=== PATIENT | female | born 1945 | race Caucasian/White ===

== ENCOUNTER 2016-06-05 02:00 | Inpatient (IN) | payer OTHER, MEDICARE ==
[~2016-06-05] VITALS: Ht 167.6 cm; Wt 67.2 kg
[~2016-06-05 02:00] MED LIST: COMBIGAN EYE DRO5 ML; HYDROCHLOROTH12.5 M2 PO; LATANOPROST2.5 ML OPH; LISINOPRIL2.5 M1 PO; METOPROLOL SUCC50 M2 PO; PRESERVISION A1 EAC1 PO; SIMVASTATIN40 M1 PO; SYMBICORT 16010.2 GM INH
--- NOTE | 2016-06-05 15:26 | Admission Core Measures ---
Admission Meds I reviewed the following Meds: Current Medications Sig/Cristin Start time Last Medication Dose Stop Time Status Admin Atorvastatin Calcium 20 MG 1700 06/05 1699 UNVr (Lipitor) Brimonidine Tartrate 1 GTT BID 06/05 2199 UNVr (Alphagan) Budesonide/ 2 PUF BID 06/05 2199 UNVr Formoterol Fumarate (Symbicort) Hydrochlorothiazide 12.5 MG DAILY 06/06 1000 UNVr (Hydrodiuril) Latanoprost 1 GTT QPM 06/05 2199 UNVr (Xalatan) Lisinopril 2.5 MG DAILY 06/06 1000 UNVr (Prinivil) Metoprolol Succinate 50 MG DAILY 06/06 1000 UNVr (Toprol XL) Acute Coronary Syndrome Inclusion Criteria ACS Diagnosis No Inpatient Core Measures LDL Reminder: If No, please order W/I first 24hr of stay Congestive Heart Failure Inclusion Criteria CHF Diagnosis No Cerebrovascular accident Inclusion Criteria CVA/TIA Diagnosis No Inpatient Core Measures Bedside Swallow Eval Reminder: If BSE failed, place ST order Antithrombotic Reminder: Order Antithrombotic Medication by end of day 2 Antithrombotic Reminder: Document Reason Antithrombotic Not ordered by end of day 2 AFIB/Flutter Reminder: If Present, add to problem list AFIB/Flutter Reminder: Order Anticoag Medication for pts with AFIB/Flutter Atherosclerosis Reminder: If Present, add to problem list LDL Reminder: If No, please order W/I first 24hr of stay PT Order Reminder: If No, please order Venous thromboembolism Inpatient Core Measures VTE Risk Factors: Age > 40, Surgery No [facility] VTE prophylaxis d/t No contraindications No VTE Pharm Prophylaxis d/t No contraindications Inclusion Criteria - Per Current guidelines, there needs to be overlap - treatment for the first 5 days of Warfarin therapy. - Parenteral Anticoagulation (IV or SC) needs to be - given along with Warfarin therapy. VTE Diagnosis No VTE Type NONE VTE Confirmed by (Test) NONE Problem List As ranked by this Provider includes Assessment & Plan 1. Mass of upper lobe of left lung HOME MEDS Home Med List Budesonide/Formoterol Fumarate (Symbicort 160-4.5 Mcg Inhaler) 160 MCG-4.5 MCG/ ACTUATION HFA.AER.AD 2 PUF INH BID COPD (Reported) Hydrochlorothiazide 12.5 MG TABLET 1 TAB PO DAILY HTN (Reported) Latanoprost 0.005 % DROPS 1 GTT OPH QPM GLAUCOMA (Reported) Lisinopril 2.5 MG TABLET 1 TAB PO DAILY HTN (Reported) Metoprolol Succinate 50 MG TAB.ER.24H 1 TAB PO DAILY HTN (Reported) Simvastatin (Simvastatin*) 40 MG TABLET 1 TAB PO QPM CHOLESTEROL (Reported) Vit C/E/Zn/Coppr/Lutein/Zeaxan (Preservision Areds 2 Softgel) 250-200-40 CAPSULE 1 TAB PO DAILY EYES (Reported)
--- NOTE | 2016-06-05 15:37 | Cons- CRCU ---
See Addendum SUE PARIS,MATILDA 06/05/16 1537: General Information and HPI Consulting Request Date of Consult: 06/05/16 Requested By: Dr Elliott Source of Information: patient, family, old records Exam Limitations: no limitations History of Present Illness: Ms Valles is a 70 year old female with past medical history of hypertension, breast cancer status post radiation, COPD (onset 12/15/2015), and hyperlipidemia who was seen on the afternoon of 06/05/2016 in the PACU after undergoing a wedge resection of a left upper lobe lung mass. A PET scan showed hypermetabolism of left upper lobe lung nodule which was suspicious and given the size was suspicious for malignancy. At the time of the clinical encounter the patient was alert and oriented 3. She appeared comfortable and endorsed no pain. She seemed to be upset however further questioning revealed no information and she reassured us that she was fine. She is currently saturating well on 3 L of oxygen by nasal cannula. Patient's primary care physician is Dr. Calderon. Patient's pharmacy is [facility] in [place]. Allergies/Medications Allergies: Uncoded Allergies: BANDAIDS (Intermediate, RASH 05/28/16) Home Med List: Brimonidine Tartrate/Timolol (Combigan Eye Drops) 0.2 %-0.5 % DROPS GLAUCOMA ( Reported) LEFT EYE Budesonide/Formoterol Fumarate (Symbicort 160-4.5 Mcg Inhaler) 160 MCG-4.5 MCG/ ACTUATION HFA.AER.AD 2 PUF INH BID COPD (Reported) Hydrochlorothiazide 12.5 MG TABLET 1 TAB PO DAILY HTN (Reported) Latanoprost 0.005 % DROPS 1 GTT OPH QPM GLAUCOMA (Reported) BOTH EYES Lisinopril 2.5 MG TABLET 1 TAB PO DAILY HTN (Reported) Metoprolol Succinate 50 MG TAB.ER.24H 1 TAB PO DAILY HTN (Reported) Simvastatin (Simvastatin*) 40 MG TABLET 1 TAB PO QPM CHOLESTEROL (Reported) Vit C/E/Zn/Coppr/Lutein/Zeaxan (Preservision Areds 2 Softgel) 250-200-40 CAPSULE 1 TAB PO DAILY EYES (Reported) Current Medications: Current Medications Sig/Cristin Start time Last Medication Dose Route Stop Time Status Admin Atorvastatin Calcium 20 MG 1700 06/05 1700 AC PO Brimonidine Tartrate 1 GTT BID 06/05 2200 AC OPH Budesonide/ 2 PUF BID 06/05 2200 AC Formoterol Fumarate INH Hydrochlorothiazide 12.5 MG DAILY 06/06 1000 AC PO Latanoprost 1 GTT QPM 06/05 2200 AC OPH Lisinopril 2.5 MG DAILY 06/06 1000 AC PO Lisinopril 2.5 MG ONCE ONE 06/05 1550 DC PO 06/05 1551 Metoprolol Succinate 50 MG DAILY 06/06 1000 AC PO Review of Systems Review of Systems Constitutional: Reports: see HPI. Denies: chills, diaphoresis, fever, malaise, weakness. EENTM: Denies: blurred vision, double vision, visual changes, eye pain, eye drainage. Cardiovascular: Denies: chest pain, edema, orthopena. Respiratory: Reports: short of breath. Denies: cough, hemoptysis, orthopnea, sputum production, stridor, wheezing. GI: Denies: see HPI, abdominal pain, bloating, constipation, diarrhea, distention, melena, nausea. Genitourinary: Denies: discharge, dysuria, frequency, hematuria, hesitation, nocturia. Musculoskeletal: Denies: see HPI, back pain, gout, joint pain, joint swelling, muscle stiffness. Skin: Denies: see HPI, cysts, change in skin color, change in hair/nails, dryness, erythema, jaundice, lesions. Past History Travel History Traveled to [place] past 21 day No Medical History Cardiovascular: hypertension, hyperlipidemia Respiratory: COPD Renal: NONE Musculoskeletal: NONE Psychiatric: NONE Endocrine: NONE Blood Disorders: NONE Cancer(s): breast cancer Surgical History Surgical History: Resection of left upper lobe Psychosocial History Where Do You Live? Home Who Do You Live With? spouse Services at Home: None Primary Language: Martiniquais Smoking Status: Former Smoker (Quit 24 years ago) ETOH Use: occasional use Illicit Drug Use: denies illicit drug use Functional Ability ADLs Independent: dressing, eating, toileting, bathing. Ambulation: independent IADLs Independent: shopping, housework, finances, food prep, telephone, transportation , medication admin. Employment History Employment: Retired Exam & Diagnostic Data Last 24 Hrs of Vital Signs/I&O BP: 183/86 Physical Exam General Appearance: well developed/nourished, no apparent distress, alert, awake , comfortable Head: atraumatic, normal appearance Eyes: Bilateral: normal appearance, PERRL, EOMI. Ears, Nose, Throat: normal pharynx, normal ENT inspection, hearing grossly normal Neck: normal inspection, supple, full range of motion Respiratory: chest non-tender, decreased breath sounds, rhonchi Cardiovascular: regular rate/rhythm Peripheral Pulses: 4+ dorsalis pedis (R), 4+ dorsalis pedis (L) Gastrointestinal: normal bowel sounds, soft, non-tender, no organomegaly Back: normal inspection Extremities: normal inspection, normal capillary refill, normal range of motion, no edema Neurologic/Psych: no motor/sensory deficits, awake, alert, oriented x 3 Cranial Nerves: normal hearing, normal speech, PERRL Skin: intact Last 48 Hrs of Labs/Talon: Na: 135 Diagnostic Data CXR Results SERVICE DATE: 06/05/16 EXAM TYPE: RAD - XRY-PORTABLE CHEST XRAY EXAMINATION: XR PORTABLE CHEST CLINICAL INFORMATION: Chest tube. Status post left upper wedge resection. COMPARISON: Chest 06/02/2016. TECHNIQUE: Portable AP 70 degrees upright view of the chest was obtained. FINDINGS: There is a chest tube in the left upper hemithorax. There is no pneumothorax. The heart is normal in size. The lungs are clear. The bony thorax is unremarkable. IMPRESSION: Left chest tube. No pneumothorax. DICTATED BY: YAZ FITZGERALD MD Assessment/Plan Impression/Plan: Ms Valles is a 70 year old female with past medical history of hypertension, breast cancer status post radiation, COPD (onset 12/15/2015), and hyperlipidemia post operative day 0 status post, thorascopic wedge resection of left upper lobe lung mass. Chest tubes 1. #Left Upper lobe lung mass wedge resection Post op day 0 Pain management with Dilaudid. Restrict fluids for the next 24 hours. 1000ml Incentive spirometer Monitor chest tube drainage. Jenkins. Strict in and out. Chest X Ray In am #Hypertension During the time of the clinical encounter her blood pressure was elevated at 180 /86. Resumed home medicatiom Lisinopril 2.5mg . Continue to monitor overnight can resume all other antihypertensives including hydrochlorothiazide. If still remains uncontrolled consider labetalol bolus prn. #History of glucose intolerance. Monitor fingersticks 3 times a day at bedtime. Maintain blood sugars between 150 - 200. Last HBA1C 5.3 NovoLog sliding scale when necessary. #Hyponatremia On examination patient was hyponatremic 135. Will repeat labs in a.m. #Depressed mood. May want to consider a psychiatry consult in a.m. pending clinical course overnight and over the next 24 hours. #History of Smoking Patient is a former smoker. Nicotine patch 7 mg PRN #DVT prophylaxis Heparin sodium 5000 units every 8 hours. #Code Full code Consult Acknowledgment - Thank you for your consult request. KENRICK MCDONNELL MD 06/05/16 1603: General Information and HPI Consulting Request Date of Consult: 06/05/16 Requested By: Dr. Elliott Assessment/Plan Other Findings/Comments: Kenrick Jacob M.D. have examined this patient, reviewed available EMR data, personally reviewed images, discussed with resident/PA/ELECTRICIAN TECHNICIAN, discussed management plan with housestaff and nursing staff, discussed managment plan all of healthcare providers, discussed management plan with patient and/or family, agreed with resident/PA/ELECTRICIAN TECHNICIAN. The past history and parts of the chart have been autopopulated. Impression 70 year old woman * thoracoscopic wege resection of EZEQUIEL mass - non-small cell lung cancer * COPD Plan - post thoracotomy care - IST - ins/outs - chest tube per CT sx - oob - trc/nebs - resume home meds - pain control DVT prophylaxis at all times Consult Acknowledgment - Thank you for your consult request.
--- NOTE | 2016-06-05 16:08 | RADIOLOGY REPORT ---
EXAMINATION: XR PORTABLE CHEST CLINICAL INFORMATION: Chest tube. Status post left upper wedge resection. COMPARISON: Chest 06/02/2016. TECHNIQUE: Portable AP 70 degrees upright view of the chest was obtained. FINDINGS: There is a chest tube in the left upper hemithorax. There is no pneumothorax. The heart is normal in size. The lungs are clear. The bony thorax is unremarkable. IMPRESSION: Left chest tube. No pneumothorax.
--- NOTE | 2016-06-05 16:25 | Admission Certification ---
Admission Certification Certification Statement - As attending physician, I certify that at the time of - admission, based on clinical presentation, severity of - symptoms, need for further diagnostic testing and - therapeutic interventions, and risk of adverse outcomes - without in-hospital treatment, in my clinical assessment, - this patient requires an acute hospital stay for a minimum - of two nights or longer. I have also considered psychsocial - factors such as support system, advanced age, financial - issues, cognitive issues, and failed out-patient treatments, - past re-admission history, safety of patient, and lack of - compliance as applicable. Specific rationale supporting this admission is: Gumaro. chest surgery with postoperative intensive care unit stay
--- NOTE | 2016-06-05 16:27 | Operative Report ---
Operative/Inv Procedure Report Surgery Date: 06/05/16 Name of Procedure: Navigational bronchoscopy with ink marking and fiducial placement Pre-Operative Diagnosis: Left upper lobe lung mass Post-Operative Diagnosis: Same Estimated Blood Loss: none Surgeon/Cement Truck Driver: Dr. Farr Anesthesia: general endotracheal tube Operative/Procedure Note Note: After placement of monitoring lines and induction of general anesthesia a survey bronchoscopy was done. The endobronchial anatomy was normal. The navigational system was then registered. The guider catheter was advanced to the anterior segment of the left upper lobe just adjacent to the documented lung nodule. 0.5 mL of methylene blue was injected. A fiducial marker was then placed just adjacent to the nodule and all this was confirmed by fluoroscopy. The guider catheter was withdrawn and the procedure then commenced as a thoracoscopy.
--- NOTE | 2016-06-05 16:29 | Operative Report ---
Operative/Inv Procedure Report Surgery Date: 06/05/16 Name of Procedure: Thoracoscopic wedge resection of left upper lobe lung mass Pre-Operative Diagnosis: Left upper lobe lung mass Post-Operative Diagnosis: Non-small cell carcinoma Estimated Blood Loss: scant Surgeon/Sorority Supervisor: ILYA PARIS,ABBEY Ascencio Anesthesia: general endotracheal tube Operative/Procedure Note Note: The endotracheal tube was converted to a double-lumen endotracheal tube and the position was confirmed with fiberoptic bronchoscopy. The patient was placed in the right lateral decubitus position and her left chest was prepped and draped in a sterile fashion. An access thoracostomy site was made in the midaxillary line and the thoracoscope was introduced. To further working ports were made. The lesion was isolated to the anterior apical pleural surface. Multiple firings of the Endo STACY stapler resected the lesion and it was removed with a bag. On table fluoroscopy of the specimen alone showed that it did contain the fiducial marker. Intraoperative frozen section disclose evidence of carcinoma with good surgical margins. Exploration was done and the aorticopulmonary window but there were no lymph nodes found. Long-acting Marcaine blocks were placed as rib blocks. The chest was drained with a 28 Bel[place]an chest tube placed through an anterior thoracostomy site. The lung was reinsufflated under direct vision and the access thoracostomy sites were closed with deep Vicryl suture followed by running Vicryl subarticular suture. The Wells brought to the recovery room awake and extubated in stable condition.
[2016-06-05 18:00] VITALS: BP 138/64
--- NOTE | 2016-06-05 18:47 | PN- Thoracic Surgery ---
Subjective Subjective: The patient was seen this afternoon postoperatively. She reports her pain is under adequate control has no other complaints at the current time aside from being hungry. She denies any shortness of breath, or true chest pain. Objective Vital Signs and I&Os Vital Signs Date Time Temp Pulse Resp B/P B/P Pulse O2 O2 Flow FiO2 Mean Ox Delivery Rate 06/05 1800 98 Nasal 2.0L Cannula 06/05 1800 96.8 78 16 138/64 98 Nasal 2.0L Cannula I's and O's: 1700 ML's in of lactated Ringer's/250 ML's out of urine via Jenkins catheter/left chest tube 20 ML's/ EBL less than 50 Postoperative chest x-ray showing no pneumothorax and a left chest tube in adequate position. Physical Exam: Gen.: Alert and in no obvious distress Skin: Warm and dry Chest: Equal expansion, left chest surgical dressing is blood-tinged but otherwise intact left chest tube in place to suction with a small air leak Cardiac: S1-S2 regular Pulmonary: Bilateral breath sounds are equal with fine expiratory wheezes and good exchange Extremities: Bilateral lower extremities are warm without calf tenderness or significant edema. Gross motor and sensory are intact. Assessment/Plan Assessment/Plan Assessment: 62-year-old female status post navigational bronchoscopy/left VATS with upper lobe wedge resection. Postoperatively patient is progressing as expected, her pain is under adequate control, and she is oxygenating adequately a minimum oxygen requirements. Plan: Keep chest tube to Pleur-evac and wall suction Total respiratory care per postthoracotomy protocol GI and DVT prophylaxis Continue current pain regiment Strict I's and O's Resume all medications Follow-up morning laboratory studies and chest x-ray Maintain IV fluids and keep IV fluids until the morning Advance diet as tolerated Core Measures/Miscellaneous Jenkins Catheter Date In: 06/05/16 Still Needed? Yes Venous Thromboembolism VTE Risk Factors: Age > 40, Cancer/chemo/oth therapy, Surgery VTE Contraindications: No Contraindications VTE Diagnosis: No VTE Type: NONE VTE Confirmed by (Test): NONE Beta Heidi Is Beta Heidi a Home Med? Yes If Yes, Was This Ordered Today? Yes Antibiotics Is Patient on Antibiotics? Yes If Yes: prophylaxis
--- NOTE | 2016-06-05 19:23 | NUR ---
REC'D THE PT FROM PACU AT 1745 VIA THE CRCU BED. PT IS A&OX3 AND EDGAR WELL. L CT IS TO LWS WITH MINIMAL BLOODY DRAINAGE NOTED WELL AN AIR LEAK. THE DRESSING TO THE L UPPER BACK HAS LG BLOODY DRAINAGE-AREA CIRCLED AND TY SERNAC AWARE. PT IS ON A 2LNC WITH AN O2 SAT OF 98-100%, NO RESP DISTRESS NOTED. R LUNG IS CLEAR BUT DIMINISHED AT THE BASE. THE EZEQUIEL BS ARE ABSENT AND THERE ARE RHONCHI TO THE LLL. PT IS IN A NSR WITHOUT ECTOPY PER THE INSTRUMENTAL MUSICIAN. R RADIAL A-LINE IN PLACE WITH A GOOD WAVEFORM, HOWEVER, OT READS 30-40 HIGHER THAN THE MANUAL OR AUTOCUFF BP. Irene BOOTHE PA-C MADE AWARE AND PER THE PA WE ARE TO GO BY MANUAL AND AUTOCUFF. IVF OF D5 1/2 NS INITIATED AT 1900 AT 75ML/HR. PT IS TAKING LIQUIDS WELL. DINNER PLACED AMD THE PT IS AWAITING ARRIVAL FROM THE KITCHEN. ABD IS SOFT WITH NORMOACTIVE BOWEL SOUNDS. GRANADOS IN PLACE DRAINING CLEAR YELLOW URINE. REPORT GIVEN TO ONCOMING NURSE.
--- NOTE | 2016-06-05 20:27 | NUR ---
PT A/OX3, FOLLOWS COMMANDS. RATES INCISIONAL PAIN 3 OUT OF 10 AT PRESENT-DESCRIBES SHARP-SEE EMAR FOR PAIN MED ADMINISTRATION. LT SIDE CHEST TUBE IN PLACE-DRAINING BLOODY DRAINAGE AT PRESENT, POSITIVE AIR LEAK, NO CREPITUS NOTED. BREATH SOUNDS CLEAR RT SIDE WITH DIMINISHED BREATH SOUNDS AT BASE, LT RHONCI THOUGHOUT. NO COUGH, SOB OR RESP DISTRESS NOTED AT PRESENT. SEE FLOW SHEET FOR VS, 02 SATS, I/O'S. MONITOR SHOWS NSR, NO ECTOPY NOTED AT PRESENT. RT RADIAL CITLALY IN PLACE. ABD SOFT, NONTENDER, NONDISTENDED, POSITIVE BOWEL SOUNDS. GRANADOS IN PLACE-DRAINING BORDERLINE AMT OF CLEAR YELLOW URINE. LT UPPER BACK DRESSING WITH BLOODY DRAINAGE, CT DSG C/D/I
--- NOTE | 2016-06-05 22:24 | NUR ---
DECREASED SBP TO 90'S DESPITE IVF AND GOOD PO LIQUID INTAKE, URINE OUTPUT 20ML/HR FOR PAST 2 HOURS-REPORTED TO TY MARTINEZ-STATED WILL GIVE 500ML BOLUS-SEE EMAR-WILL MONITOR
[2016-06-05 23:59] VITALS: BP 90/50
--- NOTE | 2016-06-06 00:21 | NUR ---
SBP-80'S, URINE OUTPUT REMAINS LOW AT 35ML FOR 2HRS-REPORTED TO TY MARTINEZ-INCREASED IVF TO 100ML/HR ORDERED-WILL MONITOR
--- NOTE | 2016-06-06 03:23 | PN- Thoracic Surgery ---
See Addendum Subjective Subjective: The patient was seen early this morning postoperatively day 1. She reports that her pain is under relatively adequate control with current time and has no other complaints aside from a sore throat. She denies any true chest pain, palpitations, or difficulty breathing. Overnight the patient has required a fluid bolus due to low blood pressure and urine outputs which is responding well. Objective Vital Signs and I&Os Vital Signs Date Time Temp Pulse Resp B/P B/P Pulse O2 O2 Flow FiO2 Mean Ox Delivery Rate 06/06 0142 96 Nasal 2.0L Cannula 06/06 0000 98 Nasal 2.0L Cannula 06/05 2359 97.4 78 23 90/50 98 Nasal 2.0L Cannula 06/06 1999 98 Nasal 2.0L Cannula 06/05 191 Nasal 2.0L Cannula 06/05 1800 98 Nasal 2.0L Cannula 06/05 1800 96.8 78 16 138/64 98 Nasal 2.0L Cannula Intake & Output 06/06 0800 06/06 0000 06/05 1600 06/05 0800 06/05 0000 06/04 1600 Intake Total 1389 Output Total 133 Balance 1256 Intake, IV 409 Intake, Oral 980 Number 0 Bowel Movements Output, Chest 28 Tube Drainage Output, Urine 105 Patient 148 lb Weight Weight Bed scale Measurement Method Physical Exam: Gen.: Alert and in no obvious distress Skin: Warm and dry Chest: Equal expansion, appropriate incisional tenderness, surgical incision with slightly bloody dressing otherwise intact. His chest tube 1 connected to Pleur-evac and wall suction with minimal drainage in the collection chamber. There is a small air leak. Cardiac: S1-S2 regular Pulmonary: Bilateral breath sounds are equal and slightly decreased at bases. Extremities: Bilateral lower extremities warm without calf tenderness or significant edema. Assessment/Plan Assessment/Plan Assessment: 62-year-old female status post navigational bronchoscopy/left VATS with upper lobe wedge resection postoperative day #1. The patient to slowly progressing, her pain is under adequate control, and she is actually eating adequately on minimal oxygen requirements. Plan: Follow-up morning laboratory studies and chest x-ray Keep chest tube to suction Continue IV fluids until urine output improves Strict I's and O's Renew Jenkins catheter Resume home medications holding hypertensive medications if the patient's blood pressure still borderline GI and DVT prophylaxis Total respiratory care per postthoracotomy protocol Continue current pain regiment Out of bed to chair today Follow-up pulmonary consultation recommendations Core Measures/Miscellaneous Jenkins Catheter Date In: 06/05/16 Venous Thromboembolism VTE Risk Factors: Age > 40, Cancer/chemo/oth therapy, Surgery VTE Contraindications: No Contraindications VTE Diagnosis: No VTE Type: NONE VTE Confirmed by (Test): NONE Beta Heidi Is Beta Heidi a Home Med? Yes If Yes, Was This Ordered Today? Yes Antibiotics Is Patient on Antibiotics? No
[2016-06-06 05:05] LABS: ABSOLUTE BASOPHIL COUNT 0 /CUMM (0.0-0.2); ABSOLUTE EOSINOPHIL COUNT 0 /CUMM (0.0-0.7); ABSOLUTE GRANULOCYTE CT 4.7 /CUMM (1.4-6.5); ABSOLUTE LYMPH COUNT 0.6 /CUMM (1.2-3.4); ABSOLUTE MONOCYTE COUNT 0.5 /CUMM (0.10-0.60); BASOPHIL % 0.1 % (0.0-2.0); EOSINOPHIL % 0.3 % (0-5); GRANULOCYTE % 81.4 % (42.2-75.2); MEAN CORPUSCULAR HGB 33.6 PG (27.0-31.0); MEAN CORPUSCULAR HGB CONC 34.1 G/DL (33.0-37.0); MEAN CORPUSCULAR VOLUME 98.4 FL (81.0-99.0); MEAN PLATELET VOLUME 8.3 FL (7.4-10.4); PLATELET COUNT 161 /CUMM (130-400); RBC DISTRIBUTION WIDTH 15.2 % (11.5-14.5); RED BLOOD CELL CT 3.45 /CUMM (4.20-5.40); WHITE BLOOD CELL COUNT 5.8 /CUMM (4.8-10.8)
[2016-06-06 05:54] LABS: HEMATOCRIT 33.9 % (37-47)
--- NOTE | 2016-06-06 06:50 | PN- Resident CRCU ---
Subjective HPI/CRCU Issues: Ms. Valles was seen and examined this morning. She is resting comfortably in bed. She endorses no issues overnight and was able to get some rest. She is currently on supplemental oxygen via nasal cannula and saturating well. She denies any fever, chills, nausea, vomiting. She denies any acute pain. She has been tolerating by mouth intake well. 24 Hour Events: Patient had decreased urinary output and needed to have IVF. Low BP: 90/50 Objective Vital Signs & I&O Last 8 Hrs of Vitals and I&O: T: 97.4 HR:66-81. NSR RR: 10-23 BP: 86/40-169/75 On 2 L NC Urine output: SII 105 ml SIII: 345 Exam General Appearance: well developed/nourished, no apparent distress, alert, awake Respiratory: normal breath sounds, chest non-tender, no respiratory distress Cardiovascular: regular rate/rhythm Gastrointestinal: normal bowel sounds, soft, non-tender Extremities: normal inspection, normal capillary refill Cranial Nerves: normal hearing, normal speech Skin: intact, normal color Skin Temp/Moisture Exam: Warm/Dry Current Medications: Current Medications Sig/Cristin Start time Last Medication Dose Route Stop Time Status Admin Acetaminophen 650 MG Q6P PRN 06/05 1745 AC PO Acetaminophen 1,000 MG Q6P PRN 06/05 1745 AC 06/05 N/A 1 UNIT IV 2014 Albuterol Sulfate 3 ML Q4 06/05 2200 AC 06/06 INH 0753 Albuterol Sulfate 3 ML EVERY 4 HRS/AWAKE 06/05 2000 DC INH Atorvastatin Calcium 20 MG 1700 06/06 1700 AC PO Atorvastatin Calcium 20 MG 17006/05 1700 DC PO Benzocaine/Menthol 1 MOHAMUD Q2P PRN 06/05 2345 AC 06/06 PO 0218 Brimonidine Tartrate 1 GTT BID 06/05 2200 DC OPH Brimonidine Tartrate 1 GTT BID 06/05 2200 AC 06/05 OPH 2122 Budesonide/ 2 PUF BID 06/05 2200 DC Formoterol Fumarate INH Budesonide/ 2 PUF BID 06/05 2200 AC 06/05 Formoterol Fumarate INH 2126 Cefazolin Sodium 1,000 MG Q8H 06/05 2030 DC 06/06 IV 06/06 0431 0509 Dextrose/Sodium 1,000 ML Q10H 06/06 0800 AC Chloride IV Dextrose/Sodium 1,000 ML Q13H 06/05 1845 DC 06/05 Chloride IV 1857 Docusate Sodium 100 MG BID 06/05 2200 AC 06/05 PO 2130 Fentanyl Citrate 500 MCG .STK-MED ONE 06/05 1141 DC IM 06/05 1142 Heparin Sodium 5,000 UNIT Q8 06/05 2200 AC 06/06 (Porcine) SC 0619 Hydralazine HCl 10 MG ONCE ONE 06/05 1700 CAN PO 06/05 1701 Hydrochlorothiazide 12.5 MG DAILY 06/06 1000 CAN PO Hydrochlorothiazide 12.5 MG DAILY 06/06 1000 CAN PO Hydrochlorothiazide 12.5 MG ONCE ONE 06/05 1715 DC PO 06/05 1716 Hydrochlorothiazide 12.5 MG ONCE ONE 06/05 1715 CAN PO 06/05 1716 Hydromorphone HCl 2 MG Q4P PRN 06/05 1745 AC 06/06 IV 0509 Hydromorphone HCl 4 MG Q4P PRN 06/05 1745 AC IV Labetalol HCl 100 MG .STK-MED ONE 06/05 1458 DC IV 06/05 1459 Latanoprost 1 GTT QPM 06/05 2200 DC OPH Latanoprost 1 GTT QPM 06/05 2200 AC 06/05 OPH 2123 Lisinopril 2.5 MG DAILY 06/06 1000 DC PO Lisinopril 2.5 MG DAILY 06/06 1000 AC PO Lisinopril 2.5 MG ONCE ONE 06/05 1550 DC 06/05 PO 06/05 1551 1556 Meperidine HCl 50 MG .STK-MED ONE 06/05 1547 DC IM 06/05 1548 Metoprolol Succinate 50 MG DAILY 06/06 1000 DC PO Metoprolol Succinate 50 MG DAILY 06/06 1000 AC PO Midazolam HCl 2 MG .STK-MED ONE 06/05 1141 DC IM 06/05 1142 Ondansetron HCl 4 MG Q6P PRN 06/05 1745 AC IV Sodium Chloride 500 ML BOLUS ONE 06/06 0115 DC 06/06 IV 06/06 0214 0140 Sodium Chloride 500 ML BOLUS ONE 06/05 2230 DC 06/05 IV 06/05 2329 2228 Timolol Maleate 1 GTT BID 06/05 2199 AC 06/05 OPH 2122 Zolpidem Tartrate 5 MG AT BEDTIME NEED.. 06/05 220 AC PO EKG Findings: PATIENT: DORI VALLES PRESENT AGE: 70 PATIENT ACCOUNT NO: [id number] : 47 LOCATION: [facility] ORDERING PHYSICIAN: MELQUIADES MARTINEZ SERVICE DATE: 06/06/16 EXAM TYPE: RAD - XRY-PORTABLE CHEST XRAY EXAMINATION: XR PORTABLE CHEST CLINICAL INFORMATION: Chest tube to suction, question pneumothorax. COMPARISON: 06/05/2016. TECHNIQUE: Portable AP semierect view of the chest was obtained. FINDINGS: Right-sided thoracostomy tube remains in place. There is no evidence of developing pneumothorax. The lungs remain relatively clear with the staple line identified in the left upper lung medially. IMPRESSION: Stable-appearing examination, left-sided thoracostomy tube, no pneumothorax. DICTATED BY: KHADIJAH COLINDRES MD Impression/Plan Impression/Problem List Impression: Ms Valles is a 70 year old female with past medical history of hypertension, breast cancer status post radiation, COPD (onset 12/15/2015), and hyperlipidemia post operative day 0 status post, thorascopic wedge resection of left upper lobe lung mass. Chest tubes 1. #Left Upper lobe lung mass wedge resection Post op day 1 Pain management with Dilaudid. Patient needed supplemental fluids overnight, owing to low urine output. We have changed her fluids to: Normal Saline 100 ml/hr Incentive spirometer Monitor chest tube drainage,likely can be pulled out this afternoon. Jenkins. Strict in and out. Chest tube currently on air seal. Repeat chest x-ray to assess whether chest tube can be pulled this a.m. #Hypertension Blood pressure this AM: 108/57 During the time of the clinical encounter her blood pressure was elevated at 180 /86. Home medications: Lisinopril 2.5mg, metoprolol 50 mg. Resume home medications once blood pressure is above 130/80. #History of glucose intolerance. Finger stick to be checked today. If elevated continue monitoring. Maintain blood sugars between 150 - 200. Last HBA1C 5.3 NovoLog sliding scale when necessary. #Hyponatremia On examination labs patient was hyponatremic 135, Sodium this AM: 123. Likely due to increased ADH due to recent surgery and symptoms of pain. Urine osmolality, Urine Lytes Will repeat BEP at 12.00, if still hyponatremic, we will consult Nephrology. #Depressed mood. Patient seems much better this am. May want to consider a psychiatry consult in a.m. pending clinical course overnight and over the next 24 hours. #History of Smoking Patient is a former smoker. Nicotine patch 7 mg PRN #DVT prophylaxis Heparin sodium 5000 units every 8 hours. #Code Full code Problem List: 1. Mass of upper lobe of left lung 2. Glaucoma Pain Ratin Tomorrow's Labs & Rationales: CBC ICU Bundle Plan DVT/Prophylaxis: pharmacological
--- NOTE | 2016-06-06 06:58 | NUR ---
PT AWAKE MOST OF NIGHT. REMAINS A/OX3. RATED INCISIONAL PAIN 2-4 FOR SHIFT-DESCIBES A DULL PAIN. BREATH SOUNDS ON RT SIDE, CLEAR, DIMINISHED ON LT SIDE. LT CHEST TUBE WITH INTERMITTENT AIR LEAK, DRAINING SM AMT OF BLOODY DRAINAGE. IMPROVED URINE OUTPUT AND BP WITH INCREASE OF IVF RATE AND 2ND NS 500ML BOLUS. DRESSING REMAIN WITH BLOODY DRAINAGE. NO OTHER CHANGE IN PT ASSESSMENT THOUGHOUT SHIFT
--- NOTE | 2016-06-06 07:50 | RADIOLOGY REPORT ---
EXAMINATION:\H\ \N\XR CHEST CLINICAL INFORMATION: Navigational bronchoscopy left upper lobe. COMPARISON: Chest x-ray dated 06/05/2016. TECHNIQUE: Fluoroscopic equipment was dedicated to the operating room for the performance of a navigational bronchoscopy. 8 spot films were obtained and are archived in PACS. FLUOROSCOPY TIME: 1 minute 55 seconds. FINDINGS: Spot films demonstrate placement of a bronchoscope with indwelling catheter into the left upper lobe bronchus. IMPRESSION: Administrative dictation for fluoroscopic equipment provided to the operating room for navigational bronchoscopy left upper lobe.
[2016-06-06 08:00] VITALS: BP 108/40
--- NOTE | 2016-06-06 08:16 | PN- CRCU ---
See Addendum Subjective HPI/Critical Care Issues: pt seen and examined pod #1 pain is controlled no cp, no dyspnea at rest overnight had a fluid bolus for transient hypotension currently without dizziness Objective Current Medications: Current Medications Sig/Cristin Start time Last Medication Dose Route Stop Time Status Admin Acetaminophen 650 MG Q6P PRN 06/05 1745 AC PO Acetaminophen 1,000 MG Q6P PRN 06/05 1745 AC 06/05 N/A 1 UNIT IV 2015 Albuterol Sulfate 3 ML Q4 06/05 2200 AC 06/06 INH 0753 Albuterol Sulfate 3 ML EVERY 4 HRS/AWAKE 06/05 2000 DC INH Atorvastatin Calcium 20 MG 1700 06/06 1700 AC PO Atorvastatin Calcium 20 MG 1700 06/05 1700 DC PO Benzocaine/Menthol 1 MOHAMUD Q2P PRN 06/05 2345 AC 06/06 PO 0218 Brimonidine Tartrate 1 GTT BID 06/05 2200 DC OPH Brimonidine Tartrate 1 GTT BID 06/05 2200 AC 06/05 OPH 2122 Budesonide/ 2 PUF BID 06/05 2200 DC Formoterol Fumarate INH Budesonide/ 2 PUF BID 06/05 2200 AC 06/05 Formoterol Fumarate INH 2126 Cefazolin Sodium 1,000 MG Q8H 06/05 2030 DC 06/06 IV 06/06 0431 0509 Dextrose/Sodium 1,000 ML Q10H 06/06 0800 AC Chloride IV Dextrose/Sodium 1,000 ML Q13H 06/05 1845 DC 06/05 Chloride IV 1857 Docusate Sodium 100 MG BID 06/05 2200 AC 06/05 PO 2130 Fentanyl Citrate 500 MCG .STK-MED ONE 06/05 1141 DC IM 06/05 1142 Heparin Sodium 5,000 UNIT Q8 06/05 2200 AC 06/06 (Porcine) SC 0619 Hydralazine HCl 10 MG ONCE ONE 06/05 1700 CAN PO 06/05 1701 Hydrochlorothiazide 12.5 MG DAILY 06/06 1000 CAN PO Hydrochlorothiazide 12.5 MG DAILY 06/06 1000 CAN PO Hydrochlorothiazide 12.5 MG ONCE ONE 06/05 1715 DC PO 06/05 1716 Hydrochlorothiazide 12.5 MG ONCE ONE 06/05 1715 CAN PO 06/05 1716 Hydromorphone HCl 2 MG Q4P PRN 06/05 1745 AC 06/06 IV 0509 Hydromorphone HCl 4 MG Q4P PRN 06/05 1745 AC IV Labetalol HCl 100 MG .STK-MED ONE 06/05 1458 DC IV 06/05 1459 Latanoprost 1 GTT QPM 06/05 2200 DC OPH Latanoprost 1 GTT QPM 06/05 2200 AC 06/05 OPH 2123 Lisinopril 2.5 MG DAILY 06/06 1000 DC PO Lisinopril 2.5 MG DAILY 06/06 1000 AC PO Lisinopril 2.5 MG ONCE ONE 06/05 1550 DC 06/05 PO 06/05 1551 1556 Meperidine HCl 50 MG .STK-MED ONE 06/05 1547 DC IM 06/05 1548 Metoprolol Succinate 50 MG DAILY 06/06 1000 DC PO Metoprolol Succinate 50 MG DAILY 06/06 1000 AC PO Midazolam HCl 2 MG .STK-MED ONE 06/05 1141 DC IM 06/05 1142 Ondansetron HCl 4 MG Q6P PRN 06/05 1745 AC IV Sodium Chloride 500 ML BOLUS ONE 06/06 0115 DC 06/06 IV 06/06 0214 0140 Sodium Chloride 500 ML BOLUS ONE 06/05 2230 DC 06/05 IV 06/05 2329 2228 Timolol Maleate 1 GTT BID 06/05 2200 AC 06/05 OPH 2122 Zolpidem Tartrate 5 MG AT BEDTIME NEED.. 06/05 2200 AC PO Vital Signs & I&O Last 24 Hrs of Vitals and I&O: Vital Signs Date Time Temp Pulse Resp B/P B/P Pulse O2 O2 Flow FiO2 Mean Ox Delivery Rate 06/06 0809 97 Nasal 1.0L Cannula 06/06 0400 97 Nasal 2.0L Cannula 06/06 0142 96 Nasal 2.0L Cannula 06/06 0000 98 Nasal 2.0L Cannula 06/05 2358 97.4 78 23 90/50 98 Nasal 2.0L Cannula 06/06 1999 98 Nasal 2.0L Cannula 06/05 191 Nasal 2.0L Cannula 06/05 1800 98 Nasal 2.0L Cannula 06/05 1800 96.8 78 16 138/64 98 Nasal 2.0L Cannula Intake & Output 06/06 1600 06/06 0800 06/06 0000 Intake Total 2523 1389 Output Total 363 133 Balance 2160 1256 Intake, IV 1563 409 Intake, Oral 960 980 Number 5 0 Bowel Movements Output, Chest 18 28 Tube Drainage Output, Urine 345 105 Patient 148 lb Weight Weight Bed scale Measurement Method Exam Other Physical Findings: gen awake and alert heent ncat cvs s1, s2 lungs ct intact, rare rhonchi abd soft bs+ ext without edema Results Last 24 Hrs of Lab Results: Laboratory Tests 06/06/16 0404: Anion Gap 6, Estimated GFR > 60, BUN/Creatinine Ratio 15.0, Phosphorus 3.9, Magnesium 1.4 L, CBC w Diff NO MAN DIFF REQ, RBC 3.45 L, MCV 98.4, MCH 33.6 H , RDW 15.2 H, MPV 8.3, Gran % 81.4 H, Lymphocytes % 9.7 L, Monocytes % 8.5, Eosinophils % 0.3, Basophils % 0.1, Absolute Granulocytes 4.7, Absolute Lymphocytes 0.6 L, Absolute Monocytes 0.5, Absolute Eosinophils 0, Absolute Basophils 0, PUBS MCHC 34.1 Impression/Plan Impression/Plan Impression/Plan: Impression 70 year old woman * thoracoscopic wege resection of EZEQUIEL mass - non-small cell lung cancer * COPD Plan - post thoracotomy care - IST - ins/outs - chest tube per CT sx - oob - trc/nebs - resume home meds - pain control DVT prophylaxis at all times TTS 35 min
--- NOTE | 2016-06-06 08:17 | RADIOLOGY REPORT ---
EXAMINATION: XR PORTABLE CHEST CLINICAL INFORMATION: Chest tube to suction, question pneumothorax. COMPARISON: 06/05/2016. TECHNIQUE: Portable AP semierect view of the chest was obtained. FINDINGS: Right-sided thoracostomy tube remains in place. There is no evidence of developing pneumothorax. The lungs remain relatively clear with the staple line identified in the left upper lung medially. IMPRESSION: Stable-appearing examination, left-sided thoracostomy tube, no pneumothorax.
[2016-06-06] MEDS ORDERED: DILAUDID2 M1 PO (09:08)
--- NOTE | 2016-06-06 09:09 | Patient Discharge Instructions ---
Discharge Instructions General Discharge Information You were seen/treated for: PET ACTIVE LUNG NODULE You had these procedures: LEFT UPPER LOBE VIDEO ASSISTED THORACOSCOPIC SURGERY, WEDGE RESECTION Watch for these problems: INCREASED PAIN, REDNESS OR DRAINAGE FROM INCISIONS, FEVER GREATER THAN 101F, CHEST PAIN OR SHORTNESS OF BREATH Do not soak the wound: Yes No bath, but you may shower: Yes Other wound care: REMOVE CHEST TUBE DRESSINGS/ALL DRESSINGS IN 48 HOURS. YOU MAY LEAVE THE DRESSING OFF. IT CAN BE COVERED IF IT CONTINUES TO DRAIN SOME FLUID. YOU MAY SHOWER AFTER THE DRESSINSG ARE REMOVED, AVOIDING BATHS, HOT TUBS OR SWIMMING UNTIL YOUR WOUNDS HEAL AND YOU ARE SEEN BY DR. CARABALLO IN HIS OFFICE. NO HEAVY LIFTING OR STRENOUS EXERCISE GREATER THAN 1 GALLON OF MILK. NO DRIVING WHILE ON PAIN MEDICATION PLEASE. Diet Continue normal diet: Yes Activity Full Activity/No Limits: No Pounds, do NOT lift more than: 10 Acute Coronary Syndrome Inclusion Criteria At DC or during hospital stay patient has or had the following: ACS DIAGNOSIS No Discharge Core Measures Meds if any: Prescribed or Continued at Discharge Meds if any: NOT Prescribed or Continued at Discharge Congestive Heart Failure Inclusion Criteria At DC or during hospital stay patient has or had the following: CHF DIAGNOSIS No Discharge Core Measures Meds if any: Prescribed or Continued at Discharge Meds if any: NOT Prescribed or Continued at Discharge Cerebrovascular accident Inclusion Criteria At DC or during hospital stay patient has or had the following: CVA/TIA Diagnosis No Discharge Core Measures Meds if any: Prescribed or Continued at Discharge Meds if any: NOT Prescribed or Continued at Discharge Venous thromboembolism Inclusion Criteria VTE Diagnosis No VTE Type NONE VTE Confirmed by (Test) NONE Discharge Core Measures - Per Current guidelines, there needs to be overlap - treatment for the first 5 days of Warfarin therapy. - If discharged on Warfarin prior to 5 days of - overlap therapy, the patient will need to be - assessed for post discharge needs including - *Post discharge parental anticoagulation - *Warfarin and/or parental anticoagulation education - *Follow up date to check INR post discharge At least 5 days overlap therapy as Inpatient No Meds if any: Prescribed or Continued at Discharge Note: Overlap Therapy is Warfarin and Anticoagulant Meds if any: NOT Prescribed or Continued at Discharge
--- NOTE | 2016-06-06 12:57 | NUR ---
Patient is alert and oriented x;s 3, able to follow commands and answer questions appropriately. Flat affect is noted. NSR on tele monitor, HR= 70-80's. SBP: 100-120's and pt denies chest pain. R. radial A-line was d/c- pressure applied FB a pressure dressing. Titrated to room air- O2 sat stable at 96%. lungs clear and diminished to the left. Left sided chest tube remains in place to water seal- Repeat chest xray done and results pending- chest tube to be d/c based on results. Abdomen is soft and non tender with +bowel sounds. Medicated with IV zofran for intermittent nausea but is tolerating po well. Jenkins in place draining clear yellow urine. Dressing to chest tube site shows scant amounts of bloody drainage. Skin is otherwise intact. Pt currently denies pain and vitals have remained stable. NS infusing at 100mls/hr. Repeat labs drawn at 1200 per order. Family at the bedside and updated frequently on plan of care. Will continue to closely monitor patient.
--- NOTE | 2016-06-06 14:42 | RADIOLOGY REPORT ---
EXAMINATION: XR PORTABLE CHEST CLINICAL INFORMATION: Status post lobectomy. For follow-up. COMPARISON: Chest done on 06/06/2016. TECHNIQUE: Portable frontal view of the chest was obtained. FINDINGS: There is a left hemithoracic chest tube identified with its tip projecting at the level of the anterior end of the left 2nd rib. There are radiopaque sutures are visualized around the left hilar, perihilar, infrahilar region. There is no definite evidence of any pneumothorax visualized within the left hemithorax, unchanged. The aerated lung mcdermott bilaterally appear clear. The cardiomediastinal silhouette is within normal limits however, there is ipsilateral, to the left, mediastinal shift visualized. IMPRESSION: 1. Stable postsurgical changes of left-sided lung lobectomy. 2. No radiographic evidence of pneumothorax. 3. The left-sided chest tube appear in stable position.
[2016-06-06 16:00] VITALS: BP 110/54
--- NOTE | 2016-06-06 16:31 | NUR ---
Chest tube d/c by surgical PA- patient tolerated procedure well. Was previously medicated with po dilaudid per order. Vitals remain stable nd O2 sats 96% on room air. Family updated on POC. Will continue to closely monitor patient.
--- NOTE | 2016-06-06 22:34 | NUR ---
@2030 1800 SODIUM LEVEL 122, PT BP AT THIS TIME 96/62 NOTIFIED MD BELTRÁN. IVF NS @100ML/HR STARTED PER MD ORDER. PT WITH NO COMPLAINTS AT THIS TIME. HR SR 70'S, ON ROOM AIR 95% NO RESPIRATORY DISTRESS, NO PAIN, FAMILY VISITING AT BEDSIDE. 2200 PT AUTO CUFF READING 79/49, CHECKED MANUAL 84/58 PT RESTING IN BED WATCHING MOVIE ON IPAD WITH NO COMPLAINTS. NOTIFED MD BELTRÁN IVF INCREASED TO 150ML/HR PER MD ORDER.
[2016-06-07] VITALS: BP 88/52
--- NOTE | 2016-06-07 05:48 | PN- Thoracic Surgery ---
Subjective Subjective: Patient has increased pain to the posterior mid left lung overnight. She was out of bed to chair and felt more short of breath this morning. Her O2 saturation is 94%, now weaned off nasal cannula and on room air. She denies any fever or flulike illness, no productive sputum. She complains of feeling weakness and malaise. Objective Vital Signs and I&Os Vital Signs Date Time Temp Pulse Resp B/P B/P Pulse O2 O2 Flow FiO2 Mean Ox Delivery Rate 06/07 0400 94 Room Air 06/07 0122 97 Nasal 2.0L Cannula 06/07 0000 96 Nasal 2.0L Cannula 06/07 0000 97.0 65 14 88/52 94 Nasal 2.0L Cannula 06/06 2000 95 Room Air 06/06 1609 97 Room Air Room Air 06/06 1600 97.9 76 18 110/54 96 Room Air 06/06 1600 96 Room Air 06/06 1200 96 Room Air 06/06 0946 75 108/57 06/06 0946 75 108/57 06/06 0809 97 Nasal 1.0L Cannula 06/06 0800 98.4 76 18 108/40 96 Nasal 2.0L Cannula 06/06 0800 96 Nasal 2.0L Cannula Intake & Output 06/07 0800 06/07 0000 06/06 1600 06/06 0800 06/06 0000 06/05 1600 Intake Total 1081 1570 2523 1389 Output Total 1700 1400 363 133 Balance -873 618 2184 1256 Intake, IV 481 279 0294 409 Intake, Oral 800 720 960 980 Number 0 5 0 Bowel Movements Output, Chest 18 28 Tube Drainage Output, Urine 1700 1400 345 105 Patient 148 lb Weight Weight Bed scale Measurement Method Physical Exam: Well-developed well-nourished no apparent distress. Sitting in a chair, appears comfortable. HEENT: Atraumatic, extraocular motion intact Neck: Supple, no lymphadenopathy trachea midline Respiratory: No respiratory distress, decreased breath sounds and crackles noted left lung, limited effort with inspiration during exam. Left-sided chest tube wound site is clean dry and intact. No tenderness. Extremities: No edema, no calf pain Neuro: Alert and oriented x3 Psych: Mood affect normal, normal memory normal judgment. Skin: Warm and dry, no rash on exposed skin Results Last 48 Hours of Labs: Laboratory Tests 06/07 06/07 06/06 06/06 0420 0021 1800 1205 Chemistry Sodium (137 - 145 mmol/L) Pending 130 L 122 L 125 L Potassium (3.5 - 5.1 mmol/L) Pending 4.1 3.8 3.5 Chloride (98 - 107 mmol/L) Pending 99 88 L 88 L Carbon Dioxide (22 - 30 mmol/L) Pending 25 25 26 Anion Gap (5 - 16) Pending 6 9 10 BUN (7 - 17 mg/dL) Pending 6 L 7 7 Creatinine (0.5 - 1.0 mg/dL) Pending 0.6 0.8 0.6 Estimated GFR (>60 ml/min) > 60 > 60 > 60 BUN/Creatinine Ratio (7 - 25 %) 10.0 8.8 Glucose (65 - 99 mg/dL) Pending 160 H Serum Osmolality (285 - 295 MOSM/KG) 264 L Calcium (8.4 - 10.2 mg/dL) Pending 8.4 Phosphorus (2.5 - 4.5 mg/dL) Pending 3.5 Magnesium (1.6 - 2.3 mg/dL) Pending 1.5 L Total Bilirubin (0.2 - 1.3 mg/dL) Pending 0.7 AST (14 - 36 U/L) Pending 22 ALT (9 - 52 U/L) Pending 23 Albumin (3.5 - 5.0 g/dL) Pending 3.2 L Hematology CBC w Diff Pending WBC Pending RBC Pending Hgb Pending Hct Pending MCV Pending MCH Pending RDW Pending Plt Count Pending MPV Pending PUBS MCHC Pending Urines Urine Osmolality (300 - 1000 MOSM/KG) 80 L Ur Random Creatinine (mg/dL) 13.9 Ur Random Sodium (30 - 90 mmol/L) 8 L Ur Random Potassium (mmol/L) 2.9 Fraction Sodium Excret (<1% %) 0.3 06/06 06/06 1020 1020 Urines Urine Color (YEL,AMB,STR) YEL Urine Clarity (CLEAR) CLEAR Urine pH (5.0 - 8.0) 6.5 Ur Specific [place] (1.001 - 1.035) 1.010 Urine Protein (NEG,<30 MG/DL) NEG Urine Ketones (NEG) 15 H Urine Nitrite (NEG) NEG Urine Bilirubin (NEG) NEG Urine Urobilinogen (0.1 - 1.0 EU/dl) 0.2 Ur Leukocyte Esterase (NEG) NEG Ur Microscopic EXAM NOT REQUIRED Urine Hemoglobin (NEG) NEG Urine Osmolality (300 - 1000 MOSM/KG) 438 Ur Random Creatinine (mg/dL) 90.9 Ur Random Sodium (30 - 90 mmol/L) 27 L Ur Random Potassium (mmol/L) 49.2 Fraction Sodium Excret (<1% %) 0.1 Urine Glucose (N MG/DL) 250 H 06/06 0404 Chemistry Sodium (137 - 145 mmol/L) 123 L Potassium (3.5 - 5.1 mmol/L) 4.0 Chloride (98 - 107 mmol/L) 92 L Carbon Dioxide (22 - 30 mmol/L) 25 Anion Gap (5 - 16) 6 BUN (7 - 17 mg/dL) 9 Creatinine (0.5 - 1.0 mg/dL) 0.6 Estimated GFR (>60 ml/min) > 60 BUN/Creatinine Ratio (7 - 25 %) 15.0 Hemoglobin A1c (4.2 - 5.8 %) Pending Phosphorus (2.5 - 4.5 mg/dL) 3.9 Magnesium (1.6 - 2.3 mg/dL) 1.4 L Hematology CBC w Diff NO MAN DIFF REQ WBC (4.8 - 10.8 /CUMM) 5.8 RBC (4.20 - 5.40 /CUMM) 3.45 L Hgb (12.0 - 16.0 G/DL) 11.6 L Hct (37 - 47 %) 33.9 L MCV (81.0 - 99.0 FL) 98.4 MCH (27.0 - 31.0 PG) 33.6 H RDW (11.5 - 14.5 %) 15.2 H Plt Count (130 - 400 /CUMM) 161 MPV (7.4 - 10.4 FL) 8.3 Gran % (42.2 - 75.2 %) 81.4 H Lymphocytes % (20.5 - 51.1 %) 9.7 L Monocytes % (1.7 - 9.3 %) 8.5 Eosinophils % (0 - 5 %) 0.3 Basophils % (0.0 - 2.0 %) 0.1 Absolute Granulocytes (1.4 - 6.5 /CUMM) 4.7 Absolute Lymphocytes (1.2 - 3.4 /CUMM) 0.6 L Absolute Monocytes (0.10 - 0.60 /CUMM) 0.5 Absolute Eosinophils (0.0 - 0.7 /CUMM) 0 Absolute Basophils (0.0 - 0.2 /CUMM) 0 PUBS MCHC (33.0 - 37.0 G/DL) 34.1 Assessment/Plan Assessment/Plan Assessment: 62-year-old female status post navigational bronchoscopy/left VATS with upper lobe wedge resection postoperative day #2. chest tube was removed yesterday without incident. Plan: Patient noted to have hyponatremia last night, could be contributing to her malaise and generalized weakness, follow-up morning laboratory studies and chest x-ray, eval for ptx/fluid overload Urine output improved, DC Jenkins cath GI and DVT prophylaxis Total respiratory care per postthoracotomy protocol Continue current pain regiment Out of bed to chair today Core Measures/Miscellaneous Jenkins Catheter Date In: 06/05/16 Venous Thromboembolism VTE Risk Factors: Age > 40, Cancer/chemo/oth therapy, Surgery VTE Contraindications: No Contraindications VTE Diagnosis: No VTE Type: NONE VTE Confirmed by (Test): NONE Beta Heidi Is Beta Heidi a Home Med? Yes If Yes, Was This Ordered Today? Yes Antibiotics Is Patient on Antibiotics? No
[2016-06-07 06:11] LABS: ABSOLUTE BASOPHIL COUNT 0 /CUMM (0.0-0.2); ABSOLUTE EOSINOPHIL COUNT 0 /CUMM (0.0-0.7); ABSOLUTE GRANULOCYTE CT 3.5 /CUMM (1.4-6.5); ABSOLUTE LYMPH COUNT 1.3 /CUMM (1.2-3.4); ABSOLUTE MONOCYTE COUNT 0.5 /CUMM (0.10-0.60); BASOPHIL % 0.7 % (0.0-2.0); EOSINOPHIL % 0.7 % (0-5); GRANULOCYTE % 65.5 % (42.2-75.2); HEMATOCRIT 35.1 % (37-47); MEAN CORPUSCULAR HGB CONC 33.5 G/DL (33.0-37.0); MEAN CORPUSCULAR VOLUME 98.6 FL (81.0-99.0); MEAN PLATELET VOLUME 8.9 FL (7.4-10.4); PLATELET COUNT 147 /CUMM (130-400); RBC DISTRIBUTION WIDTH 15.4 % (11.5-14.5); RED BLOOD CELL CT 3.56 /CUMM (4.20-5.40); WHITE BLOOD CELL COUNT 5.3 /CUMM (4.8-10.8)
--- NOTE | 2016-06-07 07:25 | PN- Resident CRCU ---
Subjective HPI/CRCU Issues: Ms. Valles was seen and examined morning. She is resting comfortably in bed. She states she was able to get some rest. She endorses mild chest pain more prominent in the left chest. At the site of the chest tube placement. Pain is rated a 2.5 out of 10. Pain is responding well to pain medications. She denies any fever, chills, nausea, vomiting. 24 Hour Events: Chest Tube Pulled Yestarday Objective Vital Signs & I&O Last 8 Hrs of Vitals and I&O: Intake & Output 06/07 0800 Intake Total 1200 Output Total 1600 Balance -400 Intake, IV 925 Intake, Oral 275 Number 0 Bowel Movements Output, Urine 1600 Exam General Appearance: well developed/nourished, no apparent distress, alert, awake Head: atraumatic Neck: normal inspection Respiratory: normal breath sounds, Mild Wheezing Right Lung Cardiovascular: regular rate/rhythm, edema, gallop Gastrointestinal: normal bowel sounds, soft, non-tender Extremities: normal inspection Cranial Nerves: normal hearing, normal speech Current Medications: Current Medications Sig/Cristin Start time Last Medication Dose Route Stop Time Status Admin Acetaminophen 650 MG Q6P PRN 06/05 1745 AC PO Acetaminophen 1,000 MG Q6P PRN 06/05 1745 AC 06/05 N/A 1 UNIT IV 2015 Albuterol Sulfate 3 ML Q4 06/05 22006/07 INH 0851 Atorvastatin Calcium 20 MG 1700 06/06 1700 AC 06/06 PO 1729 Benzocaine/Menthol 1 MOHAMUD Q2P PRN 06/05 2345 AC 06/06 PO 0218 Brimonidine Tartrate 1 GTT BID 06/05 22006/06 OPH 2117 Budesonide/ 2 PUF BID 06/05 22006/07 Formoterol Fumarate INH 0758 Calcium Carbonate 500 MG DAILY PRN 06/06 1615 AC PO Dextrose/Sodium 1,000 ML Q10H 06/06 0800 DC 06/06 Chloride IV 0800 Docusate Sodium 100 MG BID 06/05 220 AC 06/06 PO 2117 Heparin Sodium 5,000 UNIT Q8 06/05 (Porcine) SC 0625 Hydromorphone HCl 2 MG Q4P PRN 06/06 0915 06/07 PO 0514 Hydromorphone HCl 4 MG Q4P PRN 06/06 0915 AC PO Hydromorphone HCl 2 MG Q4P PRN 06/05 1745 AC 06/06 IV 0509 Latanoprost 1 GTT QPM 06/05 2200 AC 06/06 OPH 2115 Lisinopril 2.5 MG DAILY 06/06 1000 DC PO Lisinopril 2.5 MG DAILY 06/06 1000 AC 06/06 PO 0946 Magnesium Oxide 400 MG BID 06/06 1000 DC 06/06 PO 06/06 2201 2111 Melatonin 3 MG AT BEDTIME 06/06 2200 AC 06/06 PO 2115 Metoprolol Succinate 50 MG DAILY 06/06 1000 DC PO Metoprolol Succinate 50 MG DAILY 06/06 1000 AC 06/06 PO 0946 Ondansetron HCl 4 MG Q6P PRN 06/05 1745 AC 06/06 IV 1237 Potassium Chloride 40 MEQ ONCE ONE 06/06 1700 DC 06/06 PO 06/06 1701 1729 Sodium Chloride 1,000 ML Q10H 06/06 2045 DC 06/06 IV 2049 Sodium Chloride 1,000 ML Q10H 06/06 1015 DC 06/06 IV 06/06 2013 1021 Timolol Maleate 1 GTT BID 06/05 2200 AC 06/06 OPH 2115 Zolpidem Tartrate 5 MG AT BEDTIME NEED.. 06/05 2200 AC PO Impression/Plan Impression/Problem List Impression: Ms Valles is a 70 year old female with past medical history of hypertension, breast cancer status post radiation, COPD (onset 12/15/2015), and hyperlipidemia post operative day 0 status post, thorascopic wedge resection of left upper lobe lung mass. #Left Upper lobe lung mass wedge resection Post op day 2 Pain management with Dilaudid. Patient needed supplemental fluids overnight, owing to low urine output. Incentive spirometer Chest tube pulled 06/06/2016. Repeat chest x-ray to assess, if stable can be discharged or transferred to floor. #Hypertension Blood pressure this AM: 130/74 During the time of the clinical encounter her blood pressure was elevated at 180 /86. Home medications: Lisinopril 2.5mg, metoprolol 50 mg. Resume home medications once blood pressure is above 130/80. #History of glucose intolerance. Finger stick to be checked today. If elevated continue monitoring. Maintain blood sugars between 150 - 200. Last HBA1C 5.1 NovoLog sliding scale when necessary. #Hyponatremia On examination labs patient was hyponatremic 135, Sodium this AM: 134 Likely due to increased ADH due to recent surgery and symptoms of pain. Urine osmolality, Urine Lytes Nephrology was consulted 06/07/2016. #Depressed mood. Patient seems much better this am. May want to consider a psychiatry consult in a.m. pending clinical course overnight and over the next 24 hours. #History of Smoking Patient is a former smoker. Nicotine patch 7 mg PRN #DVT prophylaxis Heparin sodium 5000 units every 8 hours. #Code Full code Problem List: 1. Glaucoma 2. Mass of upper lobe of left lung 3. Hyponatremia Pain Ratin Tomorrow's Labs & Rationales: CBC ICU Bundle Plan DVT/Prophylaxis: pharmacological
[2016-06-07 08:00] VITALS: BP 130/74
--- NOTE | 2016-06-07 09:16 | PN- Pulmonary ---
Subjective HPI/Critical Care Issues: Doing much better Chest tube removed Patient is on room air Feels much improved Mild pain in the left chest area otherwise unremarkable Patient is out of bed to chair denied any fever no sputum Does complain of mild weakness and malaise Objective Current Medications: Current Medications Sig/Cristin Start time Last Medication Dose Route Stop Time Status Admin Acetaminophen 650 MG Q6P PRN 06/05 1745 AC PO Acetaminophen 1,000 MG Q6P PRN 06/05 1745 AC 06/05 N/A 1 UNIT IV 2015 Albuterol Sulfate 3 ML Q4 06/05 2200 AC 06/07 INH 0851 Atorvastatin Calcium 20 MG 1700 06/06 1700 AC 06/06 PO 1729 Benzocaine/Menthol 1 MOHAMUD Q2P PRN 06/05 2345 AC 06/06 PO 0218 Brimonidine Tartrate 1 GTT BID 06/05 2200 AC 06/06 OPH 2117 Budesonide/ 2 PUF BID 06/05 2200 AC 06/07 Formoterol Fumarate INH 0758 Calcium Carbonate 500 MG DAILY PRN 06/06 1615 AC PO Dextrose/Sodium 1,000 ML Q10H 06/06 0800 DC 06/06 Chloride IV 0800 Docusate Sodium 100 MG BID 06/05 2200 AC 06/06 PO 2117 Heparin Sodium 5,000 UNIT Q8 06/05 2200 AC 06/07 (Porcine) SC 0625 Hydromorphone HCl 2 MG Q4P PRN 06/06 0915 AC 06/07 PO 0514 Hydromorphone HCl 4 MG Q4P PRN 06/06 0915 AC PO Hydromorphone HCl 2 MG Q4P PRN 06/05 1745 AC 06/06 IV 0509 Latanoprost 1 GTT QPM 06/05 2200 AC 06/06 OPH 2115 Lisinopril 2.5 MG DAILY 06/06 1000 DC PO Lisinopril 2.5 MG DAILY 06/06 1000 AC 06/06 PO 0946 Magnesium Oxide 400 MG BID 06/06 1000 DC 06/06 PO 06/06 220 2111 Melatonin 3 MG AT BEDTIME 06/06 2200 AC 06/06 PO 2115 Metoprolol Succinate 50 MG DAILY 06/06 1000 DC PO Metoprolol Succinate 50 MG DAILY 06/06 1000 AC 06/06 PO 0946 Ondansetron HCl 4 MG Q6P PRN 06/05 1745 AC 06/06 IV 1237 Potassium Chloride 40 MEQ ONCE ONE 06/06 1700 DC 06/06 PO 06/06 1701 1729 Sodium Chloride 1,000 ML Q10H 06/06 2045 DC 06/06 IV 2049 Sodium Chloride 1,000 ML Q10H 06/06 1015 DC 06/06 IV 06/06 2013 102 Timolol Maleate 1 GTT BID 06/05 220 AC 06/06 OPH 2115 Zolpidem Tartrate 5 MG AT BEDTIME NEED.. 06/05 220 AC PO Vital Signs & I&O Last 24 Hrs of Vitals and I&O: Vital Signs Date Time Temp Pulse Resp B/P B/P Pulse O2 O2 Flow FiO2 Mean Ox Delivery Rate 06/07 0400 94 Room Air 06/07 0122 97 Nasal 2.0L Cannula 06/07 0000 96 Nasal 2.0L Cannula 06/07 0000 97.0 65 14 88/52 94 Nasal 2.0L Cannula 06/06 2000 95 Room Air 06/06 1609 97 Room Air Room Air 06/06 1600 97.9 76 18 110/54 96 Room Air 06/06 1600 96 Room Air 06/06 1200 96 Room Air 06/06 0946 75 108/57 06/06 0946 75 108/57 Intake & Output 06/07 1600 06/07 0800 06/07 0000 Intake Total 1200 1081 Output Total 1600 1700 Balance -400 -619 Intake, IV 925 281 Intake, Oral 275 800 Number 0 0 Bowel Movements Output, Urine 1600 1700 Laboratory Tests 06/07 06/07 06/06 06/06 0420 0021 1800 1205 Chemistry Sodium (137 - 145 mmol/L) 134 L 130 L 122 L 125 L Potassium (3.5 - 5.1 mmol/L) 4.8 4.1 3.8 3.5 Chloride (98 - 107 mmol/L) 103 99 88 L 88 L Carbon Dioxide (22 - 30 mmol/L) 25 25 25 26 Anion Gap (5 - 16) 6 6 9 10 BUN (7 - 17 mg/dL) 6 L 6 L 7 7 Creatinine (0.5 - 1.0 mg/dL) 0.6 0.6 0.8 0.6 Estimated GFR (>60 ml/min) > 60 > 60 > 60 > 60 BUN/Creatinine Ratio (7 - 25 %) 10.0 8.8 Glucose (65 - 99 mg/dL) 88 160 H Serum Osmolality (285 - 295 MOSM/KG) 264 L Calcium (8.4 - 10.2 mg/dL) 8.2 L 8.4 Phosphorus (2.5 - 4.5 mg/dL) 3.3 3.5 Magnesium (1.6 - 2.3 mg/dL) 1.8 1.5 L Total Bilirubin (0.2 - 1.3 mg/dL) 0.6 0.7 AST (14 - 36 U/L) 19 22 ALT (9 - 52 U/L) 29 23 Albumin (3.5 - 5.0 g/dL) 2.8 L 3.2 L Hematology CBC w Diff NO MAN DIFF REQ WBC (4.8 - 10.8 /CUMM) 5.3 RBC (4.20 - 5.40 /CUMM) 3.56 L Hgb (12.0 - 16.0 G/DL) 11.8 L Hct (37 - 47 %) 35.1 L MCV (81.0 - 99.0 FL) 98.6 MCH (27.0 - 31.0 PG) 33.0 H RDW (11.5 - 14.5 %) 15.4 H Plt Count (130 - 400 /CUMM) 147 MPV (7.4 - 10.4 FL) 8.9 Gran % (42.2 - 75.2 %) 65.5 Lymphocytes % (20.5 - 51.1 %) 23.8 Monocytes % (1.7 - 9.3 %) 9.3 Eosinophils % (0 - 5 %) 0.7 Basophils % (0.0 - 2.0 %) 0.7 Absolute Granulocytes (1.4 - 6.5 /CUMM) 3.5 Absolute Lymphocytes (1.2 - 3.4 /CUMM) 1.3 Absolute Monocytes (0.10 - 0.60 /CUMM) 0.5 Absolute Eosinophils (0.0 - 0.7 /CUMM) 0 Absolute Basophils (0.0 - 0.2 /CUMM) 0 PUBS MCHC (33.0 - 37.0 G/DL) 33.5 Urines Urine Osmolality (300 - 1000 MOSM/KG) 80 L Ur Random Creatinine (mg/dL) 13.9 Ur Random Sodium (30 - 90 mmol/L) 8 L Ur Random Potassium (mmol/L) 2.9 Fraction Sodium Excret (<1% %) 0.3 06/06 06/06 1020 1020 Urines Urine Color (YEL,AMB,STR) YEL Urine Clarity (CLEAR) CLEAR Urine pH (5.0 - 8.0) 6.5 Ur Specific [place] (1.001 - 1.035) 1.010 Urine Protein (NEG,<30 MG/DL) NEG Urine Ketones (NEG) 15 H Urine Nitrite (NEG) NEG Urine Bilirubin (NEG) NEG Urine Urobilinogen (0.1 - 1.0 EU/dl) 0.2 Ur Leukocyte Esterase (NEG) NEG Ur Microscopic EXAM NOT REQUIRED Urine Hemoglobin (NEG) NEG Urine Osmolality (300 - 1000 MOSM/KG) 438 Ur Random Creatinine (mg/dL) 90.9 Ur Random Sodium (30 - 90 mmol/L) 27 L Ur Random Potassium (mmol/L) 49.2 Fraction Sodium Excret (<1% %) 0.1 Urine Glucose (N MG/DL) 250 H 06/06 0404 Chemistry Sodium (137 - 145 mmol/L) 123 L Potassium (3.5 - 5.1 mmol/L) 4.0 Chloride (98 - 107 mmol/L) 92 L Carbon Dioxide (22 - 30 mmol/L) 25 Anion Gap (5 - 16) 6 BUN (7 - 17 mg/dL) 9 Creatinine (0.5 - 1.0 mg/dL) 0.6 Estimated GFR (>60 ml/min) > 60 BUN/Creatinine Ratio (7 - 25 %) 15.0 Hemoglobin A1c (4.2 - 5.8 %) 5.1 Phosphorus (2.5 - 4.5 mg/dL) 3.9 Magnesium (1.6 - 2.3 mg/dL) 1.4 L Hematology CBC w Diff NO MAN DIFF REQ WBC (4.8 - 10.8 /CUMM) 5.8 RBC (4.20 - 5.40 /CUMM) 3.45 L Hgb (12.0 - 16.0 G/DL) 11.6 L Hct (37 - 47 %) 33.9 L MCV (81.0 - 99.0 FL) 98.4 MCH (27.0 - 31.0 PG) 33.6 H RDW (11.5 - 14.5 %) 15.2 H Plt Count (130 - 400 /CUMM) 161 MPV (7.4 - 10.4 FL) 8.3 Gran % (42.2 - 75.2 %) 81.4 H Lymphocytes % (20.5 - 51.1 %) 9.7 L Monocytes % (1.7 - 9.3 %) 8.5 Eosinophils % (0 - 5 %) 0.3 Basophils % (0.0 - 2.0 %) 0.1 Absolute Granulocytes (1.4 - 6.5 /CUMM) 4.7 Absolute Lymphocytes (1.2 - 3.4 /CUMM) 0.6 L Absolute Monocytes (0.10 - 0.60 /CUMM) 0.5 Absolute Eosinophils (0.0 - 0.7 /CUMM) 0 Absolute Basophils (0.0 - 0.2 /CUMM) 0 PUBS MCHC (33.0 - 37.0 G/DL) 34.1 Microbiology Date/Time Procedure - Status Source Growth 06/05 1800 Surveillance Culture - COMP UPPER RESP 06/05 1800 Surveillance Culture - COMP GI 06/05 1230 Urine Culture - RES URINE ROUT Impression/Plan Impression/Plan Impression/Plan: Physical Exam: Well-developed well-nourished no apparent distress. Sitting in a chair, appears comfortable. HEENT: Atraumatic, extraocular motion intact Neck: Supple, no lymphadenopathy trachea midline Respiratory: No respiratory distress, decreased breath sounds and crackles noted left lung, limited effort with inspiration during exam. Left-sided chest tube wound site is clean dry and intact. No tenderness. Extremities: No edema, no calf pain Neuro: Alert and oriented x3 Psych: Mood affect normal, normal memory normal judgment. Skin: Warm and dry, no rash on exposed skin IMPRESSION This is a 70-year-old lady with left upper lobe wedge resection postoperative day #2. Patient is doing much better. Chest tubes have been now removed. Issues include Status post wedge resection for non-small cell lung cancer doing well COPD stable Transient hypotension postoperatively now resolved Mild chest pain related to postsurgical pain Postoperative hyponatremia now improved Anemia mild postoperative no significant bleeding Previous significant smoking Glucose intolerance Recommendation Increase activity Intentive spirometry Out of bed to chair Watch blood pressure Watch sodium seems to be improving no need to have any nephrology consultation as she clearly has improved Mild glucose intolerance watch her sugar Continue DVT prophylaxis Nicotine patch Probably can be transferred to the floor
--- NOTE | 2016-06-07 09:39 | NUR ---
AT 0800 REC'D THE PT SITTING OOB IN THE RECLINER. A&OX3, EDGAR. THE PT'S GRANADOS WAS DC'D AT 0645 AND AT 0900 THE PT VOIDED 250ML OF URINE IN THE BATHROOM. GAIT WAS STEADY. PT IS IN A NSR WITHOUT ECTOPY. ON ROOM AIR WITH AN O2 SAT OF 100%. EZEQUIEL BS ARE ABSENT AND LLL BS ARE DIMINISHED, R BS ARE CLEAR BUT DIMINISHED AT THE BASES. DRESSING TO L BACK AND L SIDE IS CLEAN, DRY AND INTACT. ABD IS SOFT.
[2016-06-07 10:03] VITALS: BP 129/57
--- NOTE | 2016-06-07 12:35 | RADIOLOGY REPORT ---
EXAMINATION: XR PORTABLE CHEST CLINICAL INFORMATION: 70-year-old woman post left chest tube removal. COMPARISON: 06/06/2016 chest radiograph TECHNIQUE: Portable frontal view of the chest was obtained. FINDINGS: There has been interval removal of a left sided chest tube. There is probably a small new left apical pneumothorax. Suture material is again seen extending from the left hilar region to the left apex. There is persistent hazy opacity at the left lung base that could reflect atelectasis and/or an effusion. IMPRESSION: Probable small new left apical pneumothorax post removal of a left-sided chest tube. Findings are being called to the referring clinical service at 12:30 PM.
--- NOTE | 2016-06-07 12:57 | Event Note ---
Event Note Event Note: S: Call received from [facility] regarding chest x-ray that was performed on this patient in the a.m. B: Imaging of the chest x-ray did show a probable small new left apical pneumothorax status post removal of a left-sided chest tube. A/R: I paged surgical PA on [phone] at approximately 12:55 PM. Shared with her the results. She was aware of the x-ray findings and was comfortable with the plan of discharge. Resident made aware.
--- NOTE | 2016-06-21 13:46 | Surgical Discharge Summary ---
Visit Information Visit Dates Admission Date: 06/05/16 Discharge Date: 06/07/16 History of Present Illness Chief Complaint: Patient was found to have a left upper lobe lung nodule suspicious for carcinoma on CT screening at [facility]. She is admitted for diagnostic and therapeutic thoracoscopic wedge resection. Preoperative evaluation and workup has shown her to not have adequate pulmonary function to tolerate lobectomy. Medical History Blood Transfusion Hx: No Cardiovascular: hypertension, hyperlipidemia Respiratory: COPD Renal: NONE Musculoskeletal: NONE Psychiatric: NONE Endocrine: NONE Blood Disorders: NONE Cancer(s): breast cancer History of MRSA: No History of VRE: No History of CDIFF: No Isolation History: Standard Influenza Vaccine: 11/10/15 Surgical History Pertinent Surgical History: SPINAL FUSION 1994 L LUMPECTOMY BREAST CA 05 Psychosocial History Where Do You Live? Home Who Do You Live With? Spouse Services at Home: None What is Your Primary Language? Mosotho ETOH Use: occasional use Review of Systems: Mild exertional dyspnea Hospital Course Course Attending Physician: ILYA PARIS,ABBEY Tapia JR Primary Care Physician: RIZWAN LEDEZMA MD Hospital Course: The patient was admitted and has a same-day procedure underwent left thoracoscopic wedge resection. Her postoperative course was uncomplicated. Her final pathology shows a stage IB non-small cell lung cancer. Allergies: Uncoded Allergies: BANDAIDS (Intermediate, RASH 05/28/16) Disposition Summary Disposition Principal Diagnosis: Stage IB non-small cell lung cancer Additional Diagnosis: COPD Discharge Disposition: home or self care Discharge Instructions General Discharge Information Code Status: Full Code Patient's Diet: Usual Patient's Activity: Usual Follow-Up Instructions/Appts: Office visit in 2 weeks with a chest x-ray Medications at Discharge Discharge Medications: Continue taking these medications: Simvastatin (Simvastatin*) 40 MG TABLET 1 Tablet ORAL Every night Comments: NOT GIVEN IN HOSPITAL. Metoprolol Succinate (Metoprolol Succinate) 50 MG TAB.ER.24H 1 Tablet ORAL DAILY Comments: Last Taken:06/07/16 Time:10AM Hydrochlorothiazide (Hydrochlorothiazide) 12.5 MG TABLET 1 Tablet ORAL DAILY Lisinopril (Lisinopril) 2.5 MG TABLET 1 Tablet ORAL DAILY Comments: Last Taken:06/07/16 Time:10AM Latanoprost (Latanoprost) 0.005 % DROPS 1 Drop In the eye Every night Instructions: BOTH EYES Comments: Last Taken:06/06/16 Time:10PM Brimonidine Tartrate/Timolol (Combigan Eye Drops) 0.2 %-0.5 % DROPS TWICE DAILY Instructions: LEFT EYE Comments: Last Taken:06/07/16 Time:10AM Budesonide/Formoterol Fumarate (Symbicort 160-4.5 Mcg Inhaler) 160 MCG-4.5 MCG/ ACTUATION HFA.AER.AD 2 Puff Inhale through mouth TWICE DAILY Comments: Last Taken:06/07/16 Time:8AM Vit C/E/Zn/Coppr/Lutein/Zeaxan (Preservision Areds 2 Softgel) 250-200-40 CAPSULE 1 Tablet ORAL DAILY Comments: NOT GIVEN IN HOSPITAL Start taking the following new medications: Hydromorphone HCl (Dilaudid) 2 MG TABLET 1-2 Tablet ORAL EVERY 4 HOURS NEEDED as needed for PAIN Qty = 30 No Refills
--- NOTE | 2016-07-10 12:19 | Surgical Discharge Summary ---
Visit Information Visit Dates Admission Date: 06/05/16 Discharge Date: 06/07/16 History of Present Illness Chief Complaint: The patient is a 70-year-old woman with a suspicious left upper lobe lung nodule that is metabolically active on PET scan. She is admitted for thoracoscopic resection as both a diagnostic and therapeutic procedure. The patient has significant pulmonary dysfunction which precludes any consideration for surgical lobectomy. Medical History Blood Transfusion Hx: No Cardiovascular: hypertension, hyperlipidemia Respiratory: COPD Renal: NONE Musculoskeletal: NONE Psychiatric: NONE Endocrine: NONE Blood Disorders: NONE Cancer(s): breast cancer History of MRSA: No History of VRE: No History of CDIFF: No Isolation History: Standard Influenza Vaccine: 11/10/15 Surgical History Pertinent Surgical History: SPINAL FUSION 1994 L LUMPECTOMY BREAST CA 05 Psychosocial History Where Do You Live? Home Who Do You Live With? Spouse Services at Home: None What is Your Primary Language? B[place]udian ETOH Use: occasional use Review of Systems: Notable for some dyspnea and otherwise unremarkable Hospital Course Course Attending Physician: ILYA PARIS,ABBEY Tapia JR Primary Care Physician: RIZWAN LEDEZMA MD Hospital Course: She was admitted and underwent a thoracoscopic resection. 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 She is stage IB lung cancer. Postoperatively she did well. Her chest tube was removed on the first postoperative day she was discharged home on second postoperative day. Allergies: Uncoded Allergies: BANDAIDS (Intermediate, RASH 05/28/16) Disposition Summary Disposition Principal Diagnosis: Stage IB left upper lobe lung cancer Additional Diagnosis: COPD Discharge Disposition: home or self care Discharge Instructions General Discharge Information Code Status: Full Code Patient's Diet: Usual Patient's Activity: As tolerated Follow-Up Instructions/Appts: 2 weeks in the office with a chest x-ray. Oncology evaluation with the patient' s oncologist as an outpatient. Medications at Discharge Discharge Medications: Continue taking these medications: Simvastatin (Simvastatin*) 40 MG TABLET 1 Tablet ORAL Every night Comments: NOT GIVEN IN HOSPITAL. Metoprolol Succinate (Metoprolol Succinate) 50 MG TAB.ER.24H 1 Tablet ORAL DAILY Comments: Last Taken:06/07/16 Time:10AM Hydrochlorothiazide (Hydrochlorothiazide) 12.5 MG TABLET 1 Tablet ORAL DAILY Lisinopril (Lisinopril) 2.5 MG TABLET 1 Tablet ORAL DAILY Comments: Last Taken:06/07/16 Time:10AM Latanoprost (Latanoprost) 0.005 % DROPS 1 Drop In the eye Every night Instructions: BOTH EYES Comments: Last Taken:06/06/16 Time:10PM Brimonidine Tartrate/Timolol (Combigan Eye Drops) 0.2 %-0.5 % DROPS TWICE DAILY Instructions: LEFT EYE Comments: Last Taken:06/07/16 Time:10AM Budesonide/Formoterol Fumarate (Symbicort 160-4.5 Mcg Inhaler) 160 MCG-4.5 MCG/ ACTUATION HFA.AER.AD 2 Puff Inhale through mouth TWICE DAILY Comments: Last Taken:06/07/16 Time:8AM Vit C/E/Zn/Coppr/Lutein/Zeaxan (Preservision Areds 2 Softgel) 250-200-40 CAPSULE 1 Tablet ORAL DAILY Comments: NOT GIVEN IN HOSPITAL Start taking the following new medications: Hydromorphone HCl (Dilaudid) 2 MG TABLET 1-2 Tablet ORAL EVERY 4 HOURS NEEDED as needed for PAIN Qty = 30 No Refills Copies To: FRANK PARIS,ASH Peña JR; BRISA PARIS,RIZWAN Bonilla
== END 2016-06-07 11:45 | DRG 167 ==
LOC: SDA 02:00 → CRI 02:00 → ENRESERV 15:45 → CRI 18:46
PROVIDERS: Student in an Organized Health Care Education/Training Program; ADMIT Thoracic Surgery (Cardiothoracic Vascular Surgery)
PROC: 0BJ08ZZ Inspection of Tracheobronchial Tree, Via Natural or Artificial Opening Endoscopic (ICD-10-PCS; principal; 2016-06-05)
PROC: 0BBG4ZX Excision of Left Upper Lung Lobe, Percutaneous Endoscopic Approach, Diagnostic (ICD-10-PCS; principal; 2016-06-05)
DX: C34.12 Malignant neoplasm of upper lobe, left bronchus or lung (principal); E87.1 Hypo-osmolality and hyponatremia; I95.81 Postprocedural hypotension; J44.9 Chronic obstructive pulmonary disease, unspecified; J95.811 Postprocedural pneumothorax; E78.5 Hyperlipidemia, unspecified; H40.9 Unspecified glaucoma; I10 Essential (primary) hypertension; Z87.891 Personal history of nicotine dependence; M85.80 Other specified disorders of bone density and structure, unspecified site; Y83.8 Other surgical procedures as the cause of abnormal reaction of the patient, or of later complication, without mention of misadventure at the time of the procedure; Y92.230 Patient room in hospital as the place of occurrence of the external cause
CPT/HCPCS: 84133; 84300; CCU; 36415; 81001; 81003; 82436; 82570; 87086; 88307; 88331; 93005; 93010; C9290; J0131; J0690; J1170; J1644; J2405; J3490; J7040; J7042